=== PATIENT | male | born 1985 | race Caucasian/White ===

== ENCOUNTER 2019-12-15 17:25 | Emergency (ER) | payer MEDICAID ==
[~2019-12-15] VITALS: Ht 172.7 cm; Wt 83.5 kg
[2019-12-15 17:31] VITALS: Ht 172.7 cm; Wt 83.5 kg
[2019-12-15 20:04] VITALS: BP 133/90
== END 2019-12-15 20:04 | disposition home or self-care (01) ==
LOC: ED 17:25
DX: S63.501A Unspecified sprain of right wrist, initial encounter (principal); K60.2 Anal fissure, unspecified; W18.39XA Other fall on same level, initial encounter; Y93.89 Activity, other specified; Y92.89 Other specified places as the place of occurrence of the external cause; Y99.8 Other external cause status
CPT/HCPCS: Q0092

== ENCOUNTER 2020-01-03 13:54 | Emergency (ER) | payer MEDICAID ==
[~2020-01-03] VITALS: Ht 175.3 cm; Wt 84.8 kg
[2020-01-03 14:03] VITALS: BP 125/87; Ht 175.3 cm; Wt 84.8 kg
== END 2020-01-03 14:45 | disposition home or self-care (01) ==
LOC: ED 13:54
DX: S60.211A Contusion of right wrist, initial encounter (principal); Z02.79 Encounter for issue of other medical certificate; X58.XXXA Exposure to other specified factors, initial encounter; Y93.89 Activity, other specified; Y92.89 Other specified places as the place of occurrence of the external cause; Y99.8 Other external cause status

== ENCOUNTER 2020-01-11 11:50 | Emergency (ER) | payer MEDICAID ==
[~2020-01-11] VITALS: Ht 175.3 cm; Wt 83.5 kg
[2020-01-11 11:55] VITALS: BP 151/101; Ht 175.3 cm; Wt 83.5 kg
== END 2020-01-11 13:08 | disposition left against medical advice (07) ==
LOC: ED 11:50
DX: Z53.21 Procedure and treatment not carried out due to patient leaving prior to being seen by health care provider (principal)

== ENCOUNTER 2020-01-12 10:29 | Emergency (ER) | payer MEDICAID ==
[~2020-01-12] VITALS: Ht 172.7 cm; Wt 83.5 kg
[2020-01-12 11:04] VITALS: Ht 172.7 cm; Wt 83.5 kg
[2020-01-12 12:37] VITALS: BP 139/69
== END 2020-01-12 12:37 | disposition home or self-care (01) ==
LOC: ED 10:29
DX: S69.91XA Unspecified injury of right wrist, hand and finger(s), initial encounter (principal); Z13.9 Encounter for screening, unspecified; X58.XXXA Exposure to other specified factors, initial encounter; Y93.89 Activity, other specified; Y92.89 Other specified places as the place of occurrence of the external cause; Y99.8 Other external cause status